=== PATIENT | female | born 2000 | race Caucasian/White ===

== ENCOUNTER 2022-05-06 00:48 | Day surgery (SDC) | payer BC, SELFPAY ==
[2022-04-29 13:03] VITALS: BMI 19.1
--- NOTE | 2022-04-29 13:09 | PC.NURSE ---
Report to the Outpatient Waiting Room, entrance under the green pavilion located off [facility], at time 0830 on date 05/06/22. Planned Procedure Time: 1030. Time changes happen often and if your time is changed the preop area will call you the afternoon before. - You and your visitor will be asked to self-screen and do not enter if you have any COVID symptoms. - Only one visitor is requested with a max of two and NO children visitors are allowed at this time. - The patient visitor may be requested to leave or wait in car when not with patient due to distancing restrictions. - A mask is REQUIRED within the hospital. Patients may have clear liquids (water, carbonated beverages, clear teas, apple juice) until 3 hours prior to surgery with a maximum of 20 ounces. - No food from midnight until time of surgery Take the following medications with a SIP of water the morning of surgery: N/A Medications to discontinue per physician: N/A Date to take last dose: N/A Please no make-up, nail czech, hairspray, perfume, deodorant, or body powder the day of surgery. No jewelry (including any body piercings) or valuables the day of surgery, leave them at home. Please take a shower or bath the night before, or the morning of, surgery with an antibacterial soap. Wear comfortable, loose fitting clothing. - Jewelry must be removed prior to entering the operating room. Rings and piercings that are not removed may be cut off. - The hospital will not accept responsibility for valuables. - Please leave all valuables, including medications, at home the day of surgery. If you are going home after surgery, a licensed seasonal driver must drive you home. - NO public transportation without another adult if you receive anesthesia. - We recommend that an adult stay with you for 24 hours following discharge. - We also recommend that you do not drive, make important decision, drink alcoholic beverages, or take any drugs that were not prescribed by your health care provider for at least 24 hours after your discharge time. Follow any additional instructions given to you from your surgeon. If you or anyone in your household have experienced Covid symptoms in the past week, please notify your surgeon or the nurse liaison at the phone number below for possible testing. Telephone instructions given to JUN REINA and asked if any additional questions and then verbalized understanding. Patient advised to call surgeon office or pre surgery nurse liaison [phone] if any additional questions.
[2022-05-06] VITALS (9 sets, daily range): BP systolic 96–136; BP diastolic 44–107; PULSE 55–79; RESP 12–16; TEMP 36.2–36.6; O2SAT 99–100
[2022-05-06] MEDS: ACETAMINOPHEN 500 MG TABLET 1000 MG PO (08:57)
[2022-05-06] MEDS: GABAPENTIN 300 MG CAPSULE PO (08:58)
--- NOTE | 2022-05-06 09:04 | PM.IMHP ---
H&P: HPI History of Present Illness Date/Time: 05/06/22 09:04 Chief Complaint: I'm here for my surgery Narrative: Leticia presents with undesired fertility desiring permanent sterilization. Review of Systems Review of Systems: All systems reviewed & are unremarkable except as noted in HPI and below [facility] Social History Social History Smoking status: Former smoker Tobacco type: cigarettes Additional smoking assessment comments: QUIT A FEW YRS AGO Alcohol intake: current Alcohol use details: 3/MONTH Substance use: current Substance use type: marijuana Living arrangements: with family Spiritual care concerns: No Meds Home Medications and Allergies Home Medications Medication Instructions Recorded Confirmed Type norgestimate 0.25 mg-ethinyl 1 tablet PO DAILY 04/29/22 05/06/22 History estradiol 35 mcg tablet (Estarylla) sertraline 50 mg tablet 50 mg PO DAILY 04/29/22 05/06/22 History Allergies Allergy/AdvReac Type Severity Reaction Status Date / Time No Known Allergies Allergy Verified 05/06/22 08:54 Exam Const: General: comfortable and no acute distress Eyes: General: appearance normal, both eyes and all related structures Neck: Neck: supple Resp: Effort & Inspection: normal respiratory effort Auscultation: clear to auscultation bilaterally Cardio: Rate: regular rate Rhythm: regular rhythm GI: GI Palp: Yes Soft to palpation Skin: General skin exam: normal color and no rashes or lesions noted Neuro: General: gait normal Speech: normal speech Motor exam (neuro): 5/5 motor strength present throughout Psych: Mental Status: mental status grossly normal Assessment and Plan Assessment and plan (1) Sterilization: Code(s): Z30.2 - Encounter for sterilization Status: Acute Assessment and Plan: Undesired fertility, desires permanent sterilization Plan Diagnostic laparoscopy, bilateral salpingectomy
--- NOTE | 2022-05-06 09:05 | WPDHPUPDATE1 ---
History and Physical Update Update Date/Time: 05/06/22 09:05 History and Physical has been reviewed, including an updated exam of the patient. There are NO changes in the patient's condition. Risks, benefits, and alternatives have been discussed and questions answered. Patient agrees to proceed with procedure.
[2022-05-06] MEDS: LACTATED RINGERS 1,000 ML 30 ML IV CONT ×2 (09:08→11:11)
--- NOTE | 2022-05-06 09:33 | P.PNAN_ITS ---
Anes - Initial Pre Proc Eval Procedure: Operation Date: 05/06/22 09:45 Proposed Procedures p Diagnostic Laparoscopy with Bilateral Salpingectomy - Sophia Steel DO Date/Time: 05/06/22 09:33 Surgeon: Sophia Steel DO Pre Op Diagnosis: Desires Sterility Patient Data Age: 21 Gender: F Height: 1.79 m Weight: 64.7 kg Last Vital Signs Temp 36.6 C 05/06/22 08:46 Pulse 79 05/06/22 08:46 Resp 16 05/06/22 08:46 BP 104/51 L 05/06/22 08:46 Pulse Ox 99 05/06/22 08:46 O2 Del Method Room Air 05/06/22 08:46 Allergies Allergy/AdvReac Type Severity Reaction Status Date / Time No Known Allergies Allergy Verified 05/06/22 08:54 Home Medications Medication Instructions Recorded Confirmed Type norgestimate 0.25 mg-ethinyl 1 tablet PO DAILY 04/29/22 05/06/22 History estradiol 35 mcg tablet (Estarylla) sertraline 50 mg tablet 50 mg PO DAILY 04/29/22 05/06/22 History Patient hx anesthesia problems: none Family hx anesthesia problems: none Results Review: All pre-operative results and documents have been reviewed as part of the pre- operative evaluation. [facility], [facility] Past Medical History Medical History Anxiety Hx of migraines Social History Social History Smoking status: Former smoker Tobacco type: cigarettes Additional smoking assessment comments: QUIT A FEW YRS AGO Alcohol intake: current Alcohol use details: 3/MONTH Substance use: current Substance use type: marijuana Living arrangements: with family Spiritual care concerns: No Anes - Eval Final PreProcedure Day of Procedure 05/06/22 09:33 Patient weight: normal Heart: regular rate and rhythm Lungs: clear to auscultation Airway: Mallampati scale class II Neurological: alert and oriented Last oral intake: >/= 8 hours ASA classification: II Emergent: no Anesthetic plan: proceed Anesthesia type and monitoring: general ETT Results Review: All pre-operative results and documents have been reviewed as part of the pre- operative evaluation. Informed Consent: The patient's anesthetic plan and its attendant risks and benefits were discussed with the patient/family/POA. Questions were solicited and answers provided to the satisfaction of the patient/family/POA.
[2022-05-06] MEDS: BUPIVACAINE HCL 0.25% PF 30 ML VIAL INFILTRATE (10:59)
[2022-05-06] MEDS: KETOROLAC 15 MG/ML VIAL (*BKC) IV PUSH (11:01)
--- NOTE | 2022-05-06 11:11 | P.OP_ITS ---
Procedure Note - Detailed Date of Procedure 05/06/22 Pre-op Diagnosis Desires Sterility Post-op Diagnosis Same Procedure Performed Diagnostic laparoscopy, bilateral salpingectomy Surgeon Sophia Steel, DO Anesthesia General Indications Undesired fertility, desires permanent sterilization Findings Normal appearing vulva and vaginal canal. Normal, medium sized cervix. Internally, the stomach, liver, gallbladder and bowels were grossly normal. The pelvic organs were unremarkable. Description of Procedure Patient was taken to the operating room where she was placed under general anesthesia. She was prepped and draped in the normal sterile fashion in the dorsal lithotomy position. No preoperative antibiotics were indicated. A time- out was performed. A speculum was placed in the vagina and the cervix was visualized. The anterior lip was grasped with a long Allis clamp and the cervix was dilated up to accommodate a Kroner uterine manipulator. Once the manipulator was placed speculum was removed. Gloves were changed and attention was then turned to the abdomen. The skin above the umbilicus was grasped with 2 penetrating towel clamps and the area was injected with local. A small incision was made and a Veress needle was introduced. The saline water drop test was performed to confirm intraperitoneal placement. CO2 insufflation was started and the abdomen was brought to a filling pressure of 15 mmHg. The Veress needle was then replaced with a 5 mm Optiview trocar which was placed under direct visualization. Survey of the abdomen revealed no evidence of bowel or vascular injury upon entry. The patient was then placed in steep Trendelenburg position. Additional port sites in the right and left lower quadrants were identified, injected and incised. 5 mm trocars were inserted under direct visualization. Survey of the abdomen and pelvis revealed the above-mentioned findings. The right tube was elevated and was cauterized and transected off using the LigaSure. It was passed off through the assistant manager quality management port. On the left side the procedure was repeated in an identical fashion. Survey of the pelvis revealed good hemostasis of the surgical pedicles. All instruments and trocars were removed and the CO2 gas was allowed to escape. The incisions were closed with subcuticular 4-0 Monocryl and covered with skin glue. The uterine manipulator was removed from the vagina. The patient was taken to the recovery in stable condition. All instrument and sponge counts were correct at the conclusion of the procedure. Estimated Blood Loss 5 Pathology Yes Complications No immediate complications Condition Stable Disposition PACU
[2022-05-06] MEDS: ONDANSETRON INJ 4 MG/2 ML VIAL IV PUSH (11:29)
[2022-05-06] MEDS: SCOPOLAMINE 1.5 MG PATCH TRANSDERM (11:35)
[2022-05-06] MEDS: fentaNYL CITRATE INJ (*CRX) 100 MCG/2 ML VIAL 25 MCG IV PUSH ×2 (11:47→12:04)
== END 2022-05-06 12:40 | disposition home or self-care (01) ==
PROVIDERS: Visit Provider Obstetrics & Gynecology Gynecologic Oncology
PROC: (CPT 49320; principal; 2022-05-06 09:45)
DX: Z30.2 Encounter for sterilization (principal); F41.9 Anxiety disorder, unspecified; Z87.891 Personal history of nicotine dependence; F12.90 Cannabis use, unspecified, uncomplicated
CPT/HCPCS: 58661; 88302; A9270; J1100; J1885; J2250; J2405; J2704; J2710; J3010; J7120